=== PATIENT | female | born 1975 | race Two or more races ===

== ENCOUNTER 2019-01-01 07:17 | Emergency (ER) | payer MEDICAID ==
[~2019-01-01] VITALS: Ht 170.2 cm; Wt 91.2 kg
[2019-01-01 07:22] VITALS: BP 132/84; Ht 170.2 cm; Wt 91.2 kg
== END 2019-01-01 07:43 | disposition home or self-care (01) ==
LOC: ED 07:17
DX: H10.12 Acute atopic conjunctivitis, left eye (principal); E78.00 Pure hypercholesterolemia, unspecified; Z88.0 Allergy status to penicillin